=== PATIENT | female | born 1945 | race Caucasian/White ===

== ENCOUNTER 2024-05-17 15:48 | Emergency (ER) | payer OTHER, MEDICARE ==
[2024-05-17 15:58] VITALS: BP 139/71; PULSE 90; RESP 18; TEMP 98.1; BMI 23.9
[2024-05-17] MEDS: oxyCODONE HCL 5 MG TABLET PO ONE (16:25)
[2024-05-17] MEDS ORDERED: oxyCODONE HCL 5 MG TABLET ONE (16:26)
== END 2024-05-17 19:40 | disposition home or self-care (01) ==
LOC: FER 15:48
DX: S82.042A Displaced comminuted fracture of left patella, initial encounter for closed fracture (principal); S00.212A Abrasion of left eyelid and periocular area, initial encounter; W01.198A Fall on same level from slipping, tripping and stumbling with subsequent striking against other object, initial encounter; Y93.01 Activity, walking, marching and hiking
CPT/HCPCS: 70450-TC; 72125-TC; 73502-TC-LT-FY; 73552-TC-LT-FY; 73562-TC-LT-FY; 99284-25